=== PATIENT | male | born 1965 | race Hispanic/Latino ===

== ENCOUNTER 2022-06-26 08:31 | Emergency (ER) | payer SELFPAY ==
[~2022-06-26] VITALS: Ht 170.2 cm; Wt 77.0 kg
[2022-06-26 08:56] VITALS: BP 165/101
[2022-06-26 09:03] VITALS: BP 153/86
[2022-06-26 09:15] VITALS: BP 150/79
[2022-06-26 09:30] VITALS: BP 142/77
[2022-06-26 09:56] LABS: BASO% 0.3 % (0-3); EOS% 5.7 % (0-8); HEMATOCRIT 47.8 % (39.0-50.0); HEMOGLOBIN 16.6 g/dl (14.0-18.0); IMMATURE GRANULOCYTES 0.3 % (0.0-5.0); LYMPH% 24.8 % (15-41); MEAN CORPUSCULAR HGB CONC 34.7 g/dL CAL (32.0-36.0); MONO% 7.2 % (2-13); NEUT# 4.44 thou/uL (1.82-7.42); NEUT% 61.7 % (42-76); RED BLOOD COUNT 5.03 mill/uL (4.70-6.10); RED CELL DISTRI WIDTH 12.1 % (11.5-15.5)
[2022-06-26 09:57] LABS: ALBUMIN 4.6 g/dL (3.2-5.0); ALKALINE PHOSPHATASE 90 u/l (38-126); ANION GAP 15 (6-22 (CALC)); BILIRUBIN, TOTAL 0.4 mg/dL (0.2-1.3); BUN 15 mg/dL (9-20); BUN/CREATININE RATIO 25 (12-20 (CALC)); CARBON DIOXIDE 24 mmol/l (22-30); CHLORIDE 106 mmol/l (95-108); CREATININE 0.6 mg/dL (0.7-1.3); GFR FOR AFR.AMER. > 60 ML/MIN (>=60 (CALC)); GFR OTHER RACES > 60 ML/MIN (>=60 (CALC)); POTASSIUM 4.5 mmol/l (3.5-5.1); SGOT/AST 32 u/l (17-59); SODIUM 141 mmol/l (137-146); TOTAL PROTEIN 7.3 g/dL (6.3-8.2)
[2022-06-26 11:38] LABS: URINE BILIRUBIN - DIPSTICK NEGATIVE (NEGATIVE); URINE BLOOD DIPSTICK NEGATIVE (NEGATIVE); URINE COLOR YELLOW; URINE GLUCOSE - DIPSTICK NEGATIVE (NEGATIVE); URINE KETONE NEGATIVE (NEGATIVE); URINE LEUK ESTERASE NEGATIVE (NEGATIVE); URINE NITRITE - DIPSTICK NEGATIVE (Negative); URINE PH 6.5 (4.5-8.0); URINE PROTEIN - DIPSTICK NEGATIVE (NEG-TRACE); URINE UROBILINOGEN - DIPSTICK 0.2 E.U./dL (0.2)
[2022-06-26] MEDS ORDERED: NAPROXEN500 MG PO (11:49)
[2022-06-26 12:15] VITALS: BP 142/77
== END 2022-06-26 12:30 | disposition home or self-care (01) | DRG 552 ==
LOC: ED 08:31
PROVIDERS: Family Medicine
DX: M54.50 Low back pain, unspecified (principal); E66.9 Obesity, unspecified

== ENCOUNTER 2023-08-03 08:32 | Emergency (ER) | payer SELFPAY ==
[~2023-08-03] VITALS: Ht 160 cm; Wt 90.0 kg
[~2023-08-03 08:32] MED LIST: NAPROXEN500 MG PO
[2023-08-03 08:48] VITALS: BP 137/79
[2023-08-03] MEDS ORDERED: KETOROLAC TROMETHAMINE 30 MG/ML SDV IM ONE (08:55)
[2023-08-03 09:30] VITALS: BP 140/81
[2023-08-03 10:00] VITALS: BP 132/79
[2023-08-03] MEDS ORDERED: EC-NAPROXEN500 MG PO (10:06)
[2023-08-03 10:16] VITALS: BP 144/88
[2023-08-03 10:21] VITALS: BP 144/88
== END 2023-08-03 10:33 | disposition home or self-care (01) | DRG 554 ==
LOC: ED 08:32
DX: M17.12 Unilateral primary osteoarthritis, left knee (principal)

== ENCOUNTER 2023-09-29 18:09 | Emergency (ER) | payer SELFPAY ==
[~2023-09-29] VITALS: Ht 160 cm; Wt 87.1 kg
[2023-09-29] VITALS (8 sets, daily range): BP systolic 124–155; BP diastolic 81–101
[~2023-09-29 18:09] MED LIST changes: +EC-NAPROXEN500 MG PO
[2023-09-29] MEDS ORDERED: ONDANSETRON HCl 4 MG/2 ML SDV IV ONE (18:20)
[2023-09-29] MEDS ORDERED: SODIUM CHLORIDE 0.9% 1,000 ML IV ONE (18:20)
[2023-09-29 20:51] LABS: BASO% 0.3 % (0-3); EOS% 1.8 % (0-8); HEMATOCRIT 42.3 % (39.0-50.0); IMMATURE GRANULOCYTES 0.2 % (0.0-5.0); LYMPH% 13.2 % (15-41); MEAN CELL VOLUME 96.1 fL CALC (80.0-100.0); MEAN CORPUSCULAR HGB CONC 34.3 g/dL CAL (32.0-36.0); MONO% 6.2 % (2-13); NEUT# 7.8 thou/uL (1.82-7.42); NEUT% 78.3 % (42-76); RED BLOOD COUNT 4.4 mill/uL (4.70-6.10); RED CELL DISTRI WIDTH 12.4 % (11.5-15.5)
[2023-09-29 20:54] LABS: HEMOGLOBIN 14.5 g/dl (14.0-18.0)
[2023-09-29 21:12] LABS: ALBUMIN 4.2 g/dL (3.2-5.0); ALKALINE PHOSPHATASE 79 u/l (38-126); ANION GAP 10 (6-22 (CALC)); BILIRUBIN, TOTAL 0.5 mg/dL (0.2-1.3); BUN 8 mg/dL (9-20); BUN/CREATININE RATIO 15 (12-20 (CALC)); CARBON DIOXIDE 24 mmol/l (22-30); CHLORIDE 110 mmol/l (95-108); CREATININE 0.5 mg/dL (0.7-1.3); ESTIMATED GFR 118 ML/MIN (>=90 (CALC)); LIPASE 89 u/l (23-300); POTASSIUM 3.7 mmol/l (3.5-5.1); SGOT/AST 41 u/l (17-59); SODIUM 140 mmol/l (137-146)
[2023-09-29 22:36] LABS: URINE BILIRUBIN - DIPSTICK Negative (NEGATIVE); URINE BLOOD DIPSTICK Trace-intact (NEGATIVE); URINE GLUCOSE - DIPSTICK Negative (NEGATIVE); URINE KETONE Negative (NEGATIVE); URINE LEUK ESTERASE Negative (NEGATIVE); URINE NITRITE - DIPSTICK Negative (Negative); URINE PROTEIN - DIPSTICK Negative (NEG-TRACE); URINE UROBILINOGEN - DIPSTICK 0.2 E.U./dL (0.2)
[2023-09-29 22:38] LABS: URINE COLOR Yellow
[2023-09-30 00:34] VITALS: BP 149/81
== END 2023-09-30 00:45 | disposition home or self-care (01) | DRG 392 ==
LOC: ED 18:09
PROVIDERS: Family Medicine
DX: R10.84 Generalized abdominal pain (principal); R11.2 Nausea with vomiting, unspecified; E66.9 Obesity, unspecified
CPT/HCPCS: Q9967